=== PATIENT | male | born 1990 | race Caucasian/White ===

== ENCOUNTER 2017-07-12 18:14 | Emergency (ER) | payer MEDICAID ==
[~2017-07-12] VITALS: Ht 193 cm; Wt 154.5 kg
[~2017-07-12 18:14] MED LIST: DOCU-28 PO
[2017-07-12 18:55] VITALS: BP 132/92
== END 2017-07-12 18:57 | disposition home or self-care (01) ==
LOC: ER 18:15
DX: S76.111A Strain of right quadriceps muscle, fascia and tendon, initial encounter (principal); F12.10 Cannabis abuse, uncomplicated; W21.01XA Struck by football, initial encounter; Y93.89 Activity, other specified; Y92.89 Other specified places as the place of occurrence of the external cause; Y99.8 Other external cause status
CPT/HCPCS: 29505; 99283

== ENCOUNTER 2017-09-29 23:22 | Emergency (ER) | payer MEDICAID ==
[~2017-09-29] VITALS: Ht 193 cm; Wt 104.5 kg
[2017-09-29 23:25] VITALS: BP 130/82
[2017-09-30] MEDS ORDERED: TETanus/Pertussis (Acell)/Diphther VAC/PF (Tdap-Adult) 0.5ml syringe IMVAC ONE (00:50)
== END 2017-09-30 02:11 | disposition home or self-care (01) ==
LOC: ER 23:22
DX: S80.01XA Contusion of right knee, initial encounter (principal); F12.90 Cannabis use, unspecified, uncomplicated; Z79.899 Other long term (current) drug therapy; Z98.890 Other specified postprocedural states; V29.9XXA Motorcycle rider (driver) (passenger) injured in unspecified traffic accident, initial encounter; Y93.89 Activity, other specified; Y92.410 Unspecified street and highway as the place of occurrence of the external cause; Y99.8 Other external cause status
CPT/HCPCS: 73564; 90471; 90715; 99284; A6449

== ENCOUNTER 2017-10-15 19:04 | Emergency (ER) | payer OTHER, MEDICAID ==
[~2017-10-15] VITALS: Ht 193 cm; Wt 116.2 kg
[2017-10-15] MEDS ORDERED: normal saline 1000ml 1,000 ML IV ONE (20:35)
[2017-10-15] MEDS ORDERED: morphine 4 MG/ML inj SYRINge IV ONE ×2 (20:35→22:20)
[2017-10-15] MEDS ORDERED: ondansetron/PF 4mg/2ml inj IV ONE (20:35)
[2017-10-15] MEDS ORDERED: LIDOcaine Viscous 15ml cup MM PRN (20:35)
[2017-10-15] MEDS ORDERED: iohexol 300mg/ml 100ml inj. ONE (20:48)
[2017-10-15 20:58] LABS: BASOPHILS % (AUTO) 0.4 % (0-1); EOSINOPHILS # (AUTO) 0.1 X10'3 (0-0.9); EOSINOPHILS % (AUTO) 1.2 % (0-6); HEMATOCRIT 46.8 % (42.0-52.0); HEMOGLOBIN 15.8 g/dl (14.0-17.9); LYMPHOCYTES # (AUTO) 1.2 X10'3 (1.1-4.8); LYMPHOCYTES % (AUTO) 13.8 % (21-51); MEAN CORPUSCULAR HEMOGLOBIN 30.3 PG (27.0-31.0); MEAN CORPUSCULAR HGB CONC 33.7 % (33.0-36.5); MEAN PLATELET VOLUME 9.3 FL (7.4-10.4); MONOCYTES # (AUTO) 0.8 X10'3 (0-0.9); NEUTROPHILS # (AUTO) 6.6 X10'3 (1.8-7.7); NEUTROPHILS % (AUTO) 75.6 % (42-75); PLATELET COUNT 288 X10'3 (140-440); RED CELL DISTRIBUTION WIDTH 13.2 % (11.5-14.5); WHITE BLOOD COUNT 8.8 X10'3 (4.5-11.0)
[2017-10-15 22:20] LABS: PARTIAL THROMBOPLASTIN TIME 26 SECONDS (22-32); PROTHROMBIN TIME 10.3 SECONDS (9.0-12.0)
[2017-10-15 22:23] LABS: ALANINE AMINOTRANSFERASE 107 U/L (12-78); ALBUMIN 4.3 G/DL (3.4-5.0); ALBUMIN/GLOBULIN RATIO 1.1 (1.1-1.5); ALKALINE PHOSPHATASE 62 IU/L (46-116); ANION GAP 11 (8-16); ASPARTATE AMINO TRANSFERASE 57 U/L (10-37); BILIRUBIN,TOTAL 1.7 MG/DL (0.1-1.0); BLOOD UREA NITROGEN 14 MG/DL (7-18); BUN/CREATININE RATIO 13.1 (5.4-32.0); CALCIUM 9.3 MG/DL (8.5-10.1); CHLORIDE 101 MMOL/L (99-107); CREATININE 1.07 MG/DL (0.60-1.10); ETHANOL 0.048 GM/DL (0.0-0.010); GLUCOSE 84 MG/DL (70-104); LIPASE 79 U/L (73-393); POTASSIUM 3.7 MMOL/L (3.5-5.1); SODIUM 138 MMOL/L (135-145); TOTAL CARBON DIOXIDE 25.6 MMOL/L (24-32); TOTAL PROTEIN 8.2 G/DL (6.4-8.2); eGFR 82 ML/MIN
[2017-10-15] MEDS ORDERED: HYDR-569 PO (22:27)
[2017-10-15] MEDS ORDERED: IBUP-1984 PO (22:27)
[2017-10-15 22:45] VITALS: BP 148/98
== END 2017-10-15 23:03 | disposition home or self-care (01) ==
LOC: ER 19:04
DX: S60.411A Abrasion of left index finger, initial encounter (principal); S60.312A Abrasion of left thumb, initial encounter; S60.512A Abrasion of left hand, initial encounter; S50.312A Abrasion of left elbow, initial encounter; S40.212A Abrasion of left shoulder, initial encounter; S30.811A Abrasion of abdominal wall, initial encounter; S30.810A Abrasion of lower back and pelvis, initial encounter; S80.212A Abrasion, left knee, initial encounter; S90.512A Abrasion, left ankle, initial encounter; R51 Headache; I10 Essential (primary) hypertension; F12.90 Cannabis use, unspecified, uncomplicated; Z79.899 Other long term (current) drug therapy; Z98.890 Other specified postprocedural states; V23.4XXA Motorcycle driver injured in collision with car, pick-up truck or van in traffic accident, initial encounter; Y93.89 Activity, other specified; Y92.410 Unspecified street and highway as the place of occurrence of the external cause; Y99.8 Other external cause status
CPT/HCPCS: 36415; 70450; 71045; 71260; 72125; 73060; 73090; 73130; 73564; 73610; 74177; 80053; 80320; 83690; 85025; 85610; 85730; 86885; 86900; 86901; 93005; 96374; 96375; 96376; 99285; A6255; A6446; J2270; J2405; J7030; L0172; Q9967

== ENCOUNTER 2018-06-27 17:29 | Emergency (ER) | payer MEDICAID, OTHER ==
[~2018-06-27] VITALS: Ht 193 cm; Wt 141.0 kg
[~2018-06-27 17:29] MED LIST changes: +HYDR-4383 PO
[2018-06-27 17:35] VITALS: BP 157/102
[2018-06-27] MEDS ORDERED: predniSONE 20 mg tablet PO ONE (18:10)
[2018-06-27] MEDS ORDERED: ipratropium/albuterol 3ml nebule NEB ONE (18:10)
[2018-06-27] MEDS ORDERED: PRED20TA PO (18:19)
[2018-06-27] MEDS ORDERED: AZIT250T2 PO (18:19)
[2018-06-27] MEDS ORDERED: GUAI120015 PO (18:19)
[2018-06-27] MEDS ORDERED: ALBU6.7H INH (18:19)
== END 2018-06-27 18:57 | disposition home or self-care (01) ==
LOC: ER 17:30
DX: J40 Bronchitis, not specified as acute or chronic (principal); I10 Essential (primary) hypertension; F12.90 Cannabis use, unspecified, uncomplicated; Z98.890 Other specified postprocedural states; Z79.899 Other long term (current) drug therapy
CPT/HCPCS: 71046; 94640; 94760; 99283; J7512

== ENCOUNTER 2018-07-11 15:31 | Emergency (ER) | payer MEDICAID, OTHER ==
[~2018-07-11] VITALS: Ht 193 cm; Wt 139.0 kg
[~2018-07-11 15:31] MED LIST changes: +ALBU6.7H INH; +GUAI120015 PO
[2018-07-11 17:09] LABS: BASOPHILS % (AUTO) 0.6 % (0-1); EOSINOPHILS # (AUTO) 0.2 X10'3 (0-0.9); HEMATOCRIT 48.9 % (42.0-52.0); HEMOGLOBIN 16.6 g/dl (14.0-17.9); LYMPHOCYTES % (AUTO) 12.9 % (21-51); MEAN CORPUSCULAR HEMOGLOBIN 30.6 PG (27.0-31.0); MONOCYTES # (AUTO) 0.6 X10'3 (0-0.9); NEUTROPHILS # (AUTO) 6.2 X10'3 (1.8-7.7); NEUTROPHILS % (AUTO) 77.5 % (42-75); PLATELET COUNT 309 X10'3 (140-440); RED BLOOD COUNT 5.43 X10'6 (4.70-6.10); RED CELL DISTRIBUTION WIDTH 14.8 % (11.5-14.5)
[2018-07-11 17:19] LABS: PARTIAL THROMBOPLASTIN TIME 26 SECONDS (22-32)
[2018-07-11 17:21] LABS: ALANINE AMINOTRANSFERASE 155 U/L (12-78); ALBUMIN 4.3 G/DL (3.4-5.0); ALBUMIN/GLOBULIN RATIO 1.1 (1.1-1.5); ALKALINE PHOSPHATASE 65 IU/L (46-116); ANION GAP 11 (8-16); ASPARTATE AMINO TRANSFERASE 93 U/L (10-37); BILIRUBIN,TOTAL 1.2 MG/DL (0.1-1.0); BLOOD UREA NITROGEN 7 MG/DL (7-18); CALCIUM 9.3 MG/DL (8.5-10.1); CHLORIDE 104 MMOL/L (99-107); ETHANOL 0.186 GM/DL (0.0-0.010); GLUCOSE 81 MG/DL (70-104); POTASSIUM 3.8 MMOL/L (3.5-5.1); SODIUM 142 MMOL/L (135-145); TOTAL CARBON DIOXIDE 27.4 MMOL/L (24-32); TOTAL PROTEIN 8.2 G/DL (6.4-8.2); eGFR 88 ML/MIN
[2018-07-11] MEDS ORDERED: MUPI22OI30 TOP (17:44)
[2018-07-11] MEDS ORDERED: CEPH-572 PO (17:44)
[2018-07-11 17:55] LABS: URINE AMPHETAMINE SCREEN NEGATIVE (Neg); URINE BARBITUATE SCREEN NEGATIVE (Neg); URINE BENZODIAZEPINES SCREEN NEGATIVE (Neg); URINE CANNABINOID SCREEN POSITIVE (Neg); URINE COCAINE SCREEN NEGATIVE (Neg); URINE METHADONE SCREEN NEGATIVE (Neg); URINE OPIATE SCREEN NEGATIVE (Neg); URINE PHENCYCLIDINE SCREEN NEGATIVE (Neg)
[2018-07-11 18:33] VITALS: BP 137/80
== END 2018-07-11 18:37 | disposition home or self-care (01) ==
LOC: ER 15:33
DX: S01.511A Laceration without foreign body of lip, initial encounter (principal); R55 Syncope and collapse; F10.10 Alcohol abuse, uncomplicated; I10 Essential (primary) hypertension; F12.90 Cannabis use, unspecified, uncomplicated; Z98.890 Other specified postprocedural states; Z79.899 Other long term (current) drug therapy; W19.XXXA Unspecified fall, initial encounter; Y93.89 Activity, other specified; Y92.89 Other specified places as the place of occurrence of the external cause; Y99.8 Other external cause status
CPT/HCPCS: 36415; 70450; 70486; 80053; 80305; 80320; 85025; 85610; 85730; 93005; 99284

== ENCOUNTER 2019-08-30 18:02 | Inpatient (IN) | payer MEDICAID, OTHER ==
[~2019-08-30] VITALS: Ht 193 cm; Wt 116.4 kg
[~2019-08-30 18:02] MED LIST changes: -ALBU6.7H INH; +ALBU6.7H9 INH
[2019-08-30] MEDS ORDERED: normal saline 1000ML IV soln IV ONE (18:40)
[2019-08-30 18:59] LABS: BASOPHILS % (AUTO) 0.4 % (0-1); EOSINOPHILS % (AUTO) 0.2 % (0-6); HEMOGLOBIN 17.5 g/dl (14.0-17.9); LYMPHOCYTES # (AUTO) 0.8 X10'3 (1.1-4.8); LYMPHOCYTES % (AUTO) 7.5 % (21-51); MEAN CORPUSCULAR HEMOGLOBIN 31.3 PG (27.0-31.0); MEAN CORPUSCULAR HGB CONC 34.3 g/dL (33.0-36.5); MEAN CORPUSCULAR VOLUME 91.2 FL (78-98); MEAN PLATELET VOLUME 8.2 FL (7.4-10.4); MONOCYTES # (AUTO) 0.9 X10'3 (0-0.9); MONOCYTES % (AUTO) 8.8 % (2-12); NEUTROPHILS # (AUTO) 8.4 X10'3 (1.8-7.7); NEUTROPHILS % (AUTO) 83.1 % (42-75); PLATELET COUNT 286 X10'3 (140-440); RED CELL DISTRIBUTION WIDTH 14.8 % (11.5-14.5); WHITE BLOOD COUNT 10.1 X10'3 (4.5-11.0)
[2019-08-30] MEDS ORDERED: diazepam inj 5 MG/ML inj. IV ONE (19:00)
[2019-08-30 19:11] LABS: ALANINE AMINOTRANSFERASE 350 U/L (12-78); ALBUMIN 4.9 G/DL (3.4-5.0); ALBUMIN/GLOBULIN RATIO 1.2 (1.1-1.5); ALKALINE PHOSPHATASE 90 IU/L (46-116); ANION GAP 12 (8-16); ASPARTATE AMINO TRANSFERASE 167 U/L (10-37); BILIRUBIN,TOTAL 3.5 MG/DL (0.1-1.0); BLOOD UREA NITROGEN 13 MG/DL (7-18); BUN/CREATININE RATIO 8.6 (5.4-32.0); CALCIUM 10.2 MG/DL (8.5-10.1); CHLORIDE 98 MMOL/L (99-107); CREATININE 1.52 MG/DL (0.60-1.10); GLUCOSE 113 MG/DL (70-104); POTASSIUM 3.9 MMOL/L (3.5-5.1); SODIUM 137 MMOL/L (135-145); TOTAL CARBON DIOXIDE 26.8 MMOL/L (24-32); TOTAL PROTEIN 9.1 G/DL (6.4-8.2); eGFR 54 ML/MIN
[2019-08-30 19:12] LABS: CLARITY,URINE CLOUDY (Clear); COLOR,URINE AMBER (Yellow); GLUCOSE, URINE NEGATIVE (Neg); KETONES,URINE 15 mg/dl (Neg); LEUKOCYTE ESTERASE ,URINE NEGATIVE (Neg); NITRITES, URINE POSITIVE (Neg); OCCULT BLOOD,URINE NEGATIVE (Neg); PH,URINE 5.5 (4.8-8.0); PROTEIN,URINE 100 mg/dl (Neg)
[2019-08-30 19:13] LABS: CREATINE KINASE 723 U/L (39-308); ETHANOL < 0.010 GM/DL (0.0-0.010)
[2019-08-30 19:20] LABS: URINE AMPHETAMINE SCREEN NEGATIVE (Neg); URINE BARBITUATE SCREEN NEGATIVE (Neg); URINE BENZODIAZEPINES SCREEN NEGATIVE (Neg); URINE CANNABINOID SCREEN POSITIVE (Neg); URINE COCAINE SCREEN NEGATIVE (Neg); URINE METHADONE SCREEN NEGATIVE (Neg); URINE OPIATE SCREEN NEGATIVE (Neg); URINE PHENCYCLIDINE SCREEN NEGATIVE (Neg)
--- NOTE | 2019-08-30 19:25 | NUR ---
PT STILL CRAMPING LET PROVDER KNOW
[2019-08-30 19:27] LABS: UA COLLECTION TYPE CLN CATCH MIDSTREAM
[2019-08-30 19:29] LABS: AMORPHOUS URATES 1+; BACTERIA,URINE NONE SEEN /HPF (Neg); MUCUS STRANDS MANY /LPF (Neg); RBC,URINE NONE SEEN /HPF (0-2); SQUAMOUS EPITHELIAL CELL,UR NONE SEEN /LPF (FEW); WBC,URINE 0-4 /HPF (0-4)
[2019-08-30 19:30] LABS: CAL OXALATE CRYSTALS 1+ /HPF (NEGATIVE)
[2019-08-30] MEDS ORDERED: morphine 4 MG/ML inj SYRINge IV ONE (19:30)
[2019-08-30] MEDS ORDERED: NO HOME MEDS (19:55)
--- NOTE | 2019-08-30 20:06 | NUR ---
relieving RN for break, pt is resting quietly on gurney, resp even and unlabored, pt said he drinks 5-6 days a week, drank 1/2 gallon Angel Luis Beam over past 3 days, last drink was yesterday, pt is aware he is being admitted to hospital, waiting to be evaluated by hospitalist
[2019-08-30 20:50] LABS: LIPASE 103 U/L (73-393)
[2019-08-30] MEDS ORDERED: thiamine inj. 100 MG in normal saline 100ml IV soln 100 ML IV ONE (20:55)
[2019-08-30] MEDS ORDERED: morphine 2 MG/ML inj. syringe IV PRN (20:55)
[2019-08-30] MEDS: LORazepam 2 mg/ml vial IV PRN ×2 (21:15→23:58)
--- NOTE | 2019-08-30 21:20 | NUR ---
Patient in room [facility]TH[facility] 4023. I have received report from Fiorella LAWSON and had the opportunity to ask questions and assume patient care.
[2019-08-30 21:25] VITALS: BP 130/85
[2019-08-30] MEDS: normal saline 1000ml 1,000 ML IV SCH (21:31)
[2019-08-30] MEDS: morphine 2 MG/ML inj. syringe IV PRN (23:12)
[2019-08-31] MEDS: morphine 2 MG/ML inj. syringe IV PRN ×3 (04:55→20:26)
[2019-08-31 05:47] LABS: BASOPHILS % (AUTO) 0.4 % (0-1); EOSINOPHILS # (AUTO) 0.1 X10'3 (0-0.9); EOSINOPHILS % (AUTO) 2.1 % (0-6); HEMATOCRIT 43.8 % (42.0-52.0); HEMOGLOBIN 14.7 g/dl (14.0-17.9); LYMPHOCYTES # (AUTO) 1.1 X10'3 (1.1-4.8); MEAN CORPUSCULAR HEMOGLOBIN 31.4 PG (27.0-31.0); MEAN CORPUSCULAR HGB CONC 33.6 g/dL (33.0-36.5); MEAN CORPUSCULAR VOLUME 93.7 FL (78-98); MEAN PLATELET VOLUME 8.6 FL (7.4-10.4); MONOCYTES # (AUTO) 0.6 X10'3 (0-0.9); MONOCYTES % (AUTO) 10.6 % (2-12); NEUTROPHILS # (AUTO) 4.1 X10'3 (1.8-7.7); NEUTROPHILS % (AUTO) 67.9 % (42-75); PLATELET COUNT 205 X10'3 (140-440); RED BLOOD COUNT 4.68 X10'6 (4.70-6.10)
[2019-08-31 06:00] VITALS: BP 118/64
[2019-08-31 06:06] LABS: ALANINE AMINOTRANSFERASE 247 U/L (12-78); ALBUMIN 3.5 G/DL (3.4-5.0); ALBUMIN/GLOBULIN RATIO 1.1 (1.1-1.5); ALKALINE PHOSPHATASE 64 IU/L (46-116); ANION GAP 4 (8-16); ASPARTATE AMINO TRANSFERASE 123 U/L (10-37); BILIRUBIN,TOTAL 3.5 MG/DL (0.1-1.0); BLOOD UREA NITROGEN 12 MG/DL (7-18); BUN/CREATININE RATIO 10.8 (5.4-32.0); CALCIUM 8.8 MG/DL (8.5-10.1); CHLORIDE 105 MMOL/L (99-107); CREATININE 1.11 MG/DL (0.60-1.10); GLUCOSE 87 MG/DL (70-104); POTASSIUM 3.7 MMOL/L (3.5-5.1); SODIUM 137 MMOL/L (135-145); TOTAL CARBON DIOXIDE 27.8 MMOL/L (24-32); TOTAL PROTEIN 6.8 G/DL (6.4-8.2); eGFR 77 ML/MIN
--- NOTE | 2019-08-31 06:48 | NUR ---
Problems reprioritized. Patient report given, questions answered & plan of care reviewed with Esme LAWSON medsurg .
[2019-08-31] MEDS: normal saline 1000ml 1,000 ML IV SCH ×2 (07:32→17:27)
[2019-08-31] MEDS: heparin, porcine 5000 units/ml vial SQ SCH ×2 (07:33→20:21)
[2019-08-31 09:57] VITALS: BP 100/55
--- NOTE | 2019-08-31 11:46 | NUR ---
PT. HAS NOT VOIDED ALL NOC SHIFT OR AM. ASKED IF HE HAD THE URGE- HE DOES NOT FEEL ANY DISCOMFORT. BLADDER SCANNED. 637ML IN BLADDER. PT. STATES HE WOULD LIKE TO ATTEMPT TO VOID BEFORE CATHETER PLACEMENT.
--- NOTE | 2019-08-31 11:55 | NUR ---
PT. ABLE TO VOID 700ML DARK GIORGIO URINE INDEPENDENTLY. EDUCATED ON THE NECESSITY TO AMBULATE AND VOID MORE OFTEN IF POSSIBLE. PT. AGREES THIS IS BETTER THAN A CATHETER.
--- NOTE | 2019-08-31 16:51 | NUR ---
PT. C/O OF SEVERE LEG CRAMPS. NOT ON ANY ELECTROLYTE OR VITAMINS FOR ALCOHOL WITHDRAWAL. CALLED MD BERNARD TO ASK FOR MAG LAB. STATED NOT NEEDED AT THIS TIME. TALKED TO GEETHA IN PHARMACY ABOUT IT WELL.
[2019-08-31] MEDS: diazepam 5mg tablet PO PRN (17:27)
--- NOTE | 2019-08-31 18:39 | NUR ---
GAVE REPORT TO VERENICE CALDERA RN.
--- NOTE | 2019-08-31 18:40 | NUR ---
Patient in room [facility]TH[facility] 4023. I have received report from ARABELLA LAWSON and had the opportunity to ask questions and assume patient care.
[2019-08-31 19:00] VITALS: BP 111/78
[2019-08-31] MEDS: thiamine 100mg tablet PO SCH (20:20)
[2019-08-31] MEDS: multivitamins, therapeutics tablet PO SCH (20:20)
[2019-08-31] MEDS: folic acid 1mg tablet PO SCH (20:20)
[2019-08-31 23:00] VITALS: BP 158/98
[2019-09-01] MEDS: morphine 2 MG/ML inj. syringe IV PRN ×2 (01:15→08:17)
[2019-09-01] MEDS: normal saline 1000ml 1,000 ML IV SCH (03:20)
[2019-09-01] MEDS: diazepam 5mg tablet PO PRN (03:24)
[2019-09-01 05:24] LABS: EOSINOPHILS # (AUTO) 0.2 X10'3 (0-0.9); EOSINOPHILS % (AUTO) 3.6 % (0-6); HEMATOCRIT 42.2 % (42.0-52.0); HEMOGLOBIN 14.1 g/dl (14.0-17.9); LYMPHOCYTES # (AUTO) 1.1 X10'3 (1.1-4.8); LYMPHOCYTES % (AUTO) 26.4 % (21-51); MEAN CORPUSCULAR HGB CONC 33.3 g/dL (33.0-36.5); MEAN PLATELET VOLUME 8.6 FL (7.4-10.4); MONOCYTES # (AUTO) 0.5 X10'3 (0-0.9); MONOCYTES % (AUTO) 10.8 % (2-12); NEUTROPHILS # (AUTO) 2.4 X10'3 (1.8-7.7); NEUTROPHILS % (AUTO) 58.2 % (42-75); PLATELET COUNT 168 X10'3 (140-440); RED BLOOD COUNT 4.54 X10'6 (4.70-6.10); RED CELL DISTRIBUTION WIDTH 14.6 % (11.5-14.5); WHITE BLOOD COUNT 4.2 X10'3 (4.5-11.0)
[2019-09-01 05:53] LABS: ALANINE AMINOTRANSFERASE 229 U/L (12-78); ALBUMIN 3.3 G/DL (3.4-5.0); ALKALINE PHOSPHATASE 63 IU/L (46-116); ANION GAP 9 (8-16); ASPARTATE AMINO TRANSFERASE 126 U/L (10-37); BLOOD UREA NITROGEN 12 MG/DL (7-18); BUN/CREATININE RATIO 13.6 (5.4-32.0); CALCIUM 8.6 MG/DL (8.5-10.1); CHLORIDE 107 MMOL/L (99-107); CREATININE 0.88 MG/DL (0.60-1.10); GLUCOSE 87 MG/DL (70-104); POTASSIUM 3.7 MMOL/L (3.5-5.1); SODIUM 140 MMOL/L (135-145); TOTAL CARBON DIOXIDE 24.3 MMOL/L (24-32); TOTAL PROTEIN 6.5 G/DL (6.4-8.2); eGFR > 90 ML/MIN
[2019-09-01 06:00] VITALS: BP 117/66
--- NOTE | 2019-09-01 06:16 | NUR ---
received report from geneva villasenor
--- NOTE | 2019-09-01 06:16 | NUR ---
Problems reprioritized. Patient report given, questions answered & plan of care reviewed with BRIANDA LAWSON.
[2019-09-01] MEDS: thiamine 100mg tablet PO SCH (08:20)
[2019-09-01] MEDS: folic acid 1mg tablet PO SCH (08:21)
[2019-09-01] MEDS: multivitamins, therapeutics tablet PO SCH (08:21)
[2019-09-01] MEDS: heparin, porcine 5000 units/ml vial SQ SCH (08:22)
[2019-09-01 10:00] VITALS: BP 134/73
--- NOTE | 2019-09-01 11:30 | NUR ---
pt d/c with instructions, understanding of instructions and w/all belongings walking out to private vehicle to go home and follow up w/pcp
[2019-09-01] MEDS ORDERED: LORazepam 2 mg/ml vial IV PRN (20:55)
[2019-09-01] MEDS ORDERED: LORazepam 1 MG tablet PO PRN (20:55)
[2019-09-02 08:21] LABS: HBSAG SCREEN Negative (Negative); HEPATITIS C ANTIBODY 0.2 s/co ratio (0.0-0.9)
[2019-09-03] MEDS ORDERED: LORazepam 1 MG tablet PO PRN (20:55)
== END 2019-09-01 11:40 | disposition home or self-care (01) | DRG 351 ==
LOC: ER 18:03 → ED HOLD 20:52 → ORTHO 4S 21:23
PROVIDERS: ADMIT Internal Medicine; ATTEND Internal Medicine
DX: M62.82 Rhabdomyolysis (principal); N17.9 Acute kidney failure, unspecified; E83.52 Hypercalcemia; T67.01XA Heatstroke and sunstroke, initial encounter; E86.0 Dehydration; I10 Essential (primary) hypertension; T67.5XXA Heat exhaustion, unspecified, initial encounter; X30.XXXA Exposure to excessive natural heat, initial encounter; X58.XXXA Exposure to other specified factors, initial encounter; Y93.89 Activity, other specified; Y92.89 Other specified places as the place of occurrence of the external cause; Y99.8 Other external cause status
CPT/HCPCS: 36415; 76700; 80053; 80305; 80320; 81001; 82550; 82948; 83690; 85025; 86803; 87081; 87088; 87340; 99285; G0378; J1644; J2060; J2270; J3360; J3411; J7030

== ENCOUNTER 2020-03-25 15:55 | Emergency (ER) | payer MEDICAID ==
[~2020-03-25] VITALS: Ht 193 cm; Wt 134.0 kg
[~2020-03-25 15:55] MED LIST changes: -ALBU6.7H9 INH; -DOCU-28 PO; -GUAI120015 PO; -HYDR-4383 PO; +NO HOME MEDS
[2020-03-25 16:10] VITALS: BP 138/99
[2020-03-25] MEDS ORDERED: SULF1TAB49 PO (17:04)
[2020-03-25] MEDS ORDERED: MUPI22OI30 TOP (17:04)
== END 2020-03-25 17:23 | disposition home or self-care (01) ==
LOC: ER 15:56
DX: L98.491 Non-pressure chronic ulcer of skin of other sites limited to breakdown of skin (principal); I10 Essential (primary) hypertension; J40 Bronchitis, not specified as acute or chronic; Z79.899 Other long term (current) drug therapy
CPT/HCPCS: 99283